=== PATIENT | female | born 1930 | race Caucasian/White ===

== ENCOUNTER → 2017-04-29 | Outpatient (CLI) | payer MEDICARE ==
[~2017-04-29] MED LIST: ACET325 PO; ATOR20 PO; CHOL10002 PO; ELIQUIS2.5 MG PO; ELIQUIS5 MG PO; FERR325 PO; GUAI600T33 PO; LETR2.5 PO; LEVO750 PO; LISHYD1012 PO; LISI5 PO; LOSA50 PO; MELO7.5 PO; METO25 PO; MULVITMIND PO; OMEP20ER PO; ONDA4ODT MM; Omeprazole20 M1 PO; PROM25 PO; RANI150 PO; ROXICODONE5 MG PO; SACC250C PO; Tylenol325 MG PO; XARELTO15 MG PO
== END | disposition home or self-care (01) ==
LOC: LAB 14:28 → LAB SHORT 14:28
DX: D48.5 Neoplasm of uncertain behavior of skin (principal)
CPT/HCPCS: 88305

== ENCOUNTER → 2017-09-29 | Outpatient (CLI) | payer MEDICARE | END | disposition home or self-care (01) | LOC: LAB SHORT 15:47 → LAB 15:47 | DX: R31.9 Hematuria, unspecified (principal) | CPT/HCPCS: 87077; 87086; 87186 ==